=== PATIENT | male | born 1940 | race Caucasian/White ===

== ENCOUNTER 2022-01-27 12:13 | Outpatient (CLI) | payer MEDICARE | END 2022-01-27 12:14 | disposition home or self-care (01) | LOC: BICMRI 12:13 | PROVIDERS: ATTEND Nurse Practitioner Family | DX: M51.16 Intervertebral disc disorders with radiculopathy, lumbar region (principal); M25.78 Osteophyte, vertebrae; M48.07 Spinal stenosis, lumbosacral region; M47.817 Spondylosis without myelopathy or radiculopathy, lumbosacral region; M48.061 Spinal stenosis, lumbar region without neurogenic claudication | CPT/HCPCS: 72148 ==

== ENCOUNTER 2022-02-25 14:36 | Outpatient (CLI) | payer MEDICARE | END 2022-02-25 14:37 | disposition home or self-care (01) | LOC: ULT 14:36 | PROVIDERS: ATTEND Nurse Practitioner Family | DX: N28.9 Disorder of kidney and ureter, unspecified (principal); N28.1 Cyst of kidney, acquired; N40.0 Benign prostatic hyperplasia without lower urinary tract symptoms | CPT/HCPCS: 76770 ==

== ENCOUNTER 2022-05-03 09:29 | Outpatient (CLI) | payer MEDICARE, OTHER ==
[2022-05-03 10:16] LABS: Hemoglobin 14.1 g/dL (13.5-17.5); Mean Corpuscular Hemoglobin 32.3 pg (27.0-33.0); Mean Platelet Volume 10.6 fl (7.4-10.4); Platelet Count 203 10x3/uL (150-450); Red Blood Cell (RBC) Count 4.37 10x6/uL (4.32-5.72); White Blood Cell (WBC) Count 8.4 10x3/uL (3.5-10.5)
[2022-05-03 10:41] LABS: INR-International Normal Ratio 0.9; PTT 26.8 sec (22.0-33.0); Prothrombin Time 10.1 sec (9.5-12.1)
[2022-05-03 10:50] LABS: Anion Gap 13 mmol/L (10-20); BUN (Urea Nitrogen) 17 mg/dL (8.4-25.7); Calc. Creatinine Clearance 0 mL/min (70-130); Calcium 9.7 mg/dL (7.8-10.44); Carbon Dioxide 25 mmol/L (23-31); Chloride 106 mmol/L (98-107); Estimated GFR 58; Glucose 116 mg/dL (83-110); Sodium 140 mmol/L (136-145)
== END 2022-05-03 09:30 | disposition home or self-care (01) ==
LOC: LABBT 09:29
PROVIDERS: ATTEND Neurological Surgery
DX: Z01.812 Encounter for preprocedural laboratory examination (principal); M51.26 Other intervertebral disc displacement, lumbar region; M51.06 Intervertebral disc disorders with myelopathy, lumbar region
CPT/HCPCS: 80048; 85027; 85610; 85730

== ENCOUNTER 2023-05-26 10:21 | Outpatient (CLI) | payer MEDICARE, OTHER | END 2023-05-26 10:22 | disposition home or self-care (01) | LOC: LABBT 10:21 | PROVIDERS: ATTEND Urology | DX: Z01.818 Encounter for other preprocedural examination (principal); N40.1 Benign prostatic hyperplasia with lower urinary tract symptoms; K80.20 Calculus of gallbladder without cholecystitis without obstruction; N20.0 Calculus of kidney; N28.1 Cyst of kidney, acquired; N32.3 Diverticulum of bladder; M54.16 Radiculopathy, lumbar region; E65 Localized adiposity; R35.0 Frequency of micturition; Z95.1 Presence of aortocoronary bypass graft; Z87.898 Personal history of other specified conditions; Z98.890 Other specified postprocedural states | CPT/HCPCS: 71046; 93005; 93010 ==

== ENCOUNTER 2023-09-27 11:12 | Outpatient (CLI) | payer MEDICARE, OTHER | END 2023-09-27 11:13 | disposition home or self-care (01) | LOC: RAD 11:12 | PROVIDERS: ATTEND Family Medicine | DX: G45.9 Transient cerebral ischemic attack, unspecified (principal); D32.0 Benign neoplasm of cerebral meninges; R41.3 Other amnesia; Z95.0 Presence of cardiac pacemaker | CPT/HCPCS: 71046 ==

== ENCOUNTER 2023-09-29 07:48 | Outpatient (CLI) | payer MEDICARE, OTHER ==
[2023-09-29] MEDS ORDERED: Magnevist 469MG/ML 20 ML VIAL ONE (12:45)
== END 2023-09-29 07:49 | disposition home or self-care (01) ==
LOC: MRI 07:48
PROVIDERS: ATTEND Family Medicine
DX: D32.0 Benign neoplasm of cerebral meninges (principal); G45.9 Transient cerebral ischemic attack, unspecified; R41.3 Other amnesia; G93.9 Disorder of brain, unspecified; I67.89 Other cerebrovascular disease
CPT/HCPCS: 70553; A9579

== ENCOUNTER 2024-01-17 09:57 | Outpatient (CLI) | payer MEDICARE, OTHER ==
[2024-01-17] MEDS ORDERED: Magnevist 469MG/ML 20 ML VIAL ONE (12:27)
== END 2024-01-17 09:58 | disposition home or self-care (01) ==
LOC: MRI 09:57
PROVIDERS: ATTEND Neurological Surgery
DX: D32.9 Benign neoplasm of meninges, unspecified (principal); G93.9 Disorder of brain, unspecified
CPT/HCPCS: 70553; 71046; 76376; A9579

== ENCOUNTER 2024-02-05 08:00 | Outpatient (CLI) | payer MEDICARE, OTHER ==
[2024-02-05] MEDS ORDERED: Iopamidol 370 76% 100 ML VIAL ONE (09:37)
== END 2024-02-05 08:01 | disposition home or self-care (01) ==
LOC: CT 08:00
PROVIDERS: ATTEND Urology
DX: N28.1 Cyst of kidney, acquired (principal); N20.1 Calculus of ureter
CPT/HCPCS: 74178; Q9967

== ENCOUNTER 2024-03-13 13:47 | Outpatient (CLI) | payer MEDICARE, OTHER | END 2024-03-13 13:48 | disposition home or self-care (01) | LOC: BICULT 13:47 | PROVIDERS: ATTEND Urology | DX: N20.0 Calculus of kidney (principal); N28.1 Cyst of kidney, acquired; N28.89 Other specified disorders of kidney and ureter | CPT/HCPCS: 36415; 74018; 76770; 80048; 81001; 87086 ==

== ENCOUNTER 2024-04-19 09:10 | Outpatient (CLI) | payer MEDICARE, OTHER | END 2024-04-19 09:11 | disposition home or self-care (01) | LOC: BICCT 09:10 | PROVIDERS: ATTEND Urology | DX: N28.1 Cyst of kidney, acquired (principal); K80.20 Calculus of gallbladder without cholecystitis without obstruction; N20.0 Calculus of kidney | CPT/HCPCS: 74176 ==

== ENCOUNTER 2024-05-02 09:11 | Outpatient (CLI) | payer MEDICARE, OTHER ==
[2024-05-02 11:26] LABS: %Basophils 0.9 % (0.0-1.0); %Eosinophils 4.6 % (0.0-10.0); %Lymphocytes 23.9 % (21.0-51.0); %Monocytes 10.1 % (0.0-10.0); Hematocrit 42.4 % (42.0-52.0); Hemoglobin 14.1 g/dL (14.0-18.0); Mean Corpuscular HGB CONC 33.3 g/dL (32.0-36.0); Mean Corpuscular Hemoglobin 31.3 pg (27.0-31.0); Mean Platelet Volume 10.4 fL (7.4-10.4); Platelet Count 250 10x3/uL (130-400); RBC Distribution Width 12.3 % (11.5-14.5); Red Blood Cell (RBC) Count 4.51 mill/uL (4.70-6.10)
[2024-05-02 11:41] LABS: PTT 31.5 sec (22.9-36.1); Prothrombin Time 13.1 sec (12.0-14.7)
[2024-05-02 11:45] LABS: Bacteria/HPF 2+ HPF (None Seen); Bilirubin Negative (Negative); Blood, Urine 3+ (Negative); Clarity Turbid (Clear); Glucose, Urine (Dipstick) Normal (Negative); Ketone, Urine Negative (Negative); Leukocyte 500 Leu/uL (Negative); Nitrite Negative (Negative); Protein, Urine (Dipstick) 100 mg/dL (Neg-Trace); Squamous Epithelial 0-3 HPF (0-3); Urobilinogen Normal mg/dL (Less than 2); WBC/HPF Greater than 50 HPF (0-3)
[2024-05-02 11:57] LABS: Anion Gap 12 mmol/L (10-20); BUN (Urea Nitrogen) 17 mg/dL (8.4-25.7); Calc. Creatinine Clearance 0 mL/min (70-130); Calcium 9.6 mg/dL (7.8-10.44); Carbon Dioxide 24 mmol/L (23-31); Chloride 106 mmol/L (98-107); Estimated GFR 66; Glucose 91 mg/dL (83-110); Potassium 4.3 mmol/L (3.5-5.1); Sodium 138 mmol/L (136-145)
[2024-05-02 12:05] LABS: RBC/HPF 21-50 HPF (0-3)
== END 2024-05-02 09:12 | disposition home or self-care (01) ==
LOC: LABBT 09:11
PROVIDERS: ATTEND Urology
DX: Z01.812 Encounter for preprocedural laboratory examination (principal); N20.0 Calculus of kidney
CPT/HCPCS: 80048; 81001; 85025; 85610; 85730; 87086

== ENCOUNTER 2024-05-08 09:06 | Day surgery (SDC) | payer MEDICARE, OTHER ==
[2024-05-02 09:52] VITALS: BMI 32.5
[2024-05-08] MEDS ORDERED: LevoFLOXacin D5W 500 mg (100 mL) BAG ONE (11:09)
[2024-05-08] MEDS ORDERED: Lidocaine 2% PF 5 ML VIAL ONE (13:31)
[2024-05-08] MEDS ORDERED: PROPOFOL 20 ML ONE (13:31)
[2024-05-08] MEDS ORDERED: Rocuronium Bromide 10 MG/ML (10ML VIAL) ONE (13:31)
[2024-05-08] MEDS ORDERED: Iopamidol 30 ML ONE (13:56)
[2024-05-08] MEDS ORDERED: fentaNYL PF 100 MCG/2 ML SYRINGE ONE (13:58)
[2024-05-08] MEDS ORDERED: Dexamethasone 4 mg/ml Vial ONE (14:21)
[2024-05-08] MEDS ORDERED: Ondansetron PF 4 MG/2 ML Vial ONE (14:21)
[2024-05-08] MEDS ORDERED: PHENYLEPHRINE-NS 100 MCG/ML 10 ML SYRINGE ONE (14:26)
[2024-05-08] MEDS ORDERED: SUGAMMADEX SODIUM 200 MG/2 ML VIAL ONE (14:27)
[2024-05-08] MEDS ORDERED: ePHEDrine Sulfate 50 MG/10 ML VIAL ONE (14:32)
[2024-05-08] MEDS ORDERED: Phenazopyridine HCl 100 MG TAB ONE (15:40)
== END 2024-05-08 17:15 | disposition home or self-care (01) ==
LOC: SDC 09:06
PROVIDERS: ATTEND Urology
PROC: 0TC68ZZ Extirpation of Matter from Right Ureter, Via Natural or Artificial Opening Endoscopic (ICD-10-PCS; principal; 2024-05-08)
PROC: 0TC08ZZ Extirpation of Matter from Right Kidney, Via Natural or Artificial Opening Endoscopic (ICD-10-PCS; 2024-05-08)
PROC: 0TC78ZZ Extirpation of Matter from Left Ureter, Via Natural or Artificial Opening Endoscopic (ICD-10-PCS; 2024-05-08)
PROC: 0T778DZ Dilation of Left Ureter with Intraluminal Device, Via Natural or Artificial Opening Endoscopic (ICD-10-PCS; 2024-05-08)
PROC: 0T768DZ Dilation of Right Ureter with Intraluminal Device, Via Natural or Artificial Opening Endoscopic (ICD-10-PCS; 2024-05-08)
DX: N20.2 Calculus of kidney with calculus of ureter (principal); I10 Essential (primary) hypertension; E78.5 Hyperlipidemia, unspecified; K21.9 Gastro-esophageal reflux disease without esophagitis; J40 Bronchitis, not specified as acute or chronic; Z95.0 Presence of cardiac pacemaker; Z95.1 Presence of aortocoronary bypass graft; Z87.891 Personal history of nicotine dependence; Z90.49 Acquired absence of other specified parts of digestive tract; Z90.79 Acquired absence of other genital organ(s); Z90.89 Acquired absence of other organs; Z98.890 Other specified postprocedural states; Z88.0 Allergy status to penicillin
CPT/HCPCS: 52356; 74018; 74420; J1100; J1956; J2405; J2704; Q9967; 82365; 88300; C1747; C1769; C2617

== ENCOUNTER 2024-12-18 10:57 | Outpatient (CLI) | payer MEDICARE, OTHER | END 2024-12-18 10:58 | disposition home or self-care (01) | LOC: BICRAD 10:57 | PROVIDERS: ATTEND Family Medicine | DX: R22.9 Localized swelling, mass and lump, unspecified (principal) | CPT/HCPCS: 71120 ==

== ENCOUNTER 2025-02-27 13:36 | Outpatient (CLI) | payer MEDICARE, OTHER | END 2025-02-27 13:37 | disposition home or self-care (01) | LOC: RAD 13:36 | PROVIDERS: ATTEND Neurological Surgery | DX: M54.2 Cervicalgia (principal); M40.40 Postural lordosis, site unspecified; M47.812 Spondylosis without myelopathy or radiculopathy, cervical region | CPT/HCPCS: 72050 ==